=== PATIENT | male | born 1935 | race Caucasian/White ===

== ENCOUNTER → 2017-04-30 | Outpatient (CLI) | payer MEDICARE ==
[~2017-04-30] MED LIST: ASPIRIN EC81 MG PO; ATIVAN-DPS0.5 MG PO; ATIVAN0.5 MG PO; CERAVE237 ML TP; CHLORASEPTIC SPR6 OZ PO; CLARITIN DPS10 MG PO; COLACE-DPS100 MG PO; COUMADIN3 MG PO; COUMADIN6 MG PO; DESYREL-DPS50 MG PO; HYDROCHLOROTHIA25 MG PO; HYTONE-DPS 2.5%30 GM TP; IMODIUM A-D2 MG PO; KEFLEX-DPS500 MG PO; KLOR-CON M2020 ME1 PO; LASIX20 M1 GT; LIDEX 0.05% OIN60 GM TP; LIDOCAINE PATCH TD; LIDODERM PATC1 PATCH TP; LORTAB LIQUID D15 ML GT; MAALOX DPS30 ML PO; MESTINON DPS60 MG PO; METOPROLOL TART25 MG PO; MEVACOR40 MG PO; MIRALAX17 GM GT; NEOSPORIN OINT1 EACH TP; NEXIUM40 MG PO; NITROSTAT0.4 MG SL; NIZORAL DPS30 GM TP; POTASSIUM GLUC500 MG PO; PREPARATION H O60 GM TP; PREVACID30 MG GT; SERTRALINE HCL25 MG PO; SINEMET 25-1001 EACH GT; TYLENOL DP650 MG/20. GT; TYLENOL-DP325 MG/10. PO; TYLENOL-DPS650 MG PR; VESICARE5 MG PO; [UNRECOGNIZED DRUG - OTHER] GT
== END | disposition home or self-care (01) ==
LOC: RAD.S 14:53
DX: M79.89 Other specified soft tissue disorders (principal); L53.9 Erythematous condition, unspecified; M79.605 Pain in left leg

== ENCOUNTER 2017-07-01 06:46 | Inpatient (IN) | payer MEDICARE ==
[~2017-07-01 06:46] MED LIST changes: -CERAVE237 ML TP; -CLARITIN DPS10 MG PO; -COLACE-DPS100 MG PO; -COUMADIN6 MG PO; -DESYREL-DPS50 MG PO; -HYDROCHLOROTHIA25 MG PO; -IMODIUM A-D2 MG PO; -KEFLEX-DPS500 MG PO; -KLOR-CON M2020 ME1 PO; -LIDEX 0.05% OIN60 GM TP; -LIDOCAINE PATCH TD; -MESTINON DPS60 MG PO; -MEVACOR40 MG PO; -NEXIUM40 MG PO; -NITROSTAT0.4 MG SL; -NIZORAL DPS30 GM TP; -POTASSIUM GLUC500 MG PO; -SERTRALINE HCL25 MG PO; -TYLENOL-DP325 MG/10. PO; -VESICARE5 MG PO
[2017-07-05] MEDS ORDERED: CLARITIN DPS10 MG PO (14:25)
[2017-07-05] MEDS ORDERED: CERAVE237 ML TP (14:25)
[2017-07-05] MEDS ORDERED: COUMADIN6 MG PO (14:27)
[2017-07-05] MEDS ORDERED: HYDROCHLOROTHIA25 MG PO (14:28)
[2017-07-05] MEDS ORDERED: IMODIUM A-D2 MG PO (14:28)
[2017-07-05] MEDS ORDERED: LIDEX 0.05% OIN60 GM TP (14:29)
[2017-07-05] MEDS ORDERED: LIDOCAINE PATCH TD (14:31)
[2017-07-05] MEDS ORDERED: NEXIUM40 MG PO (14:33)
[2017-07-05] MEDS ORDERED: MESTINON DPS60 MG PO (14:33)
[2017-07-05] MEDS ORDERED: MEVACOR40 MG PO (14:33)
[2017-07-05] MEDS ORDERED: POTASSIUM GLUC500 MG PO (14:34)
[2017-07-05] MEDS ORDERED: NIZORAL DPS30 GM TP (14:34)
[2017-07-05] MEDS ORDERED: TYLENOL-DP325 MG/10. PO (14:36)
[2017-07-05] MEDS ORDERED: DESYREL-DPS50 MG PO (14:36)
[2017-07-05] MEDS ORDERED: KLOR-CON M2020 ME1 PO (14:37)
[2017-07-05] MEDS ORDERED: SERTRALINE HCL25 MG PO (14:37)
[2017-07-05] MEDS ORDERED: VESICARE5 MG PO (14:37)
[2017-07-05] MEDS ORDERED: NITROSTAT0.4 MG SL (14:38)
[2017-07-05] MEDS ORDERED: COLACE-DPS100 MG PO (14:38)
[2017-07-05] MEDS ORDERED: KEFLEX-DPS500 MG PO (14:38)
== END 2017-07-04 15:05 | disposition home or self-care (01) | DRG 603 ==
DX: L03.116 Cellulitis of left lower limb (principal); G70.00 Myasthenia gravis without (acute) exacerbation; I48.91 Unspecified atrial fibrillation; R00.1 Bradycardia, unspecified; E87.6 Hypokalemia; I10 Essential (primary) hypertension; E78.5 Hyperlipidemia, unspecified; N40.0 Benign prostatic hyperplasia without lower urinary tract symptoms; F41.1 Generalized anxiety disorder; I87.8 Other specified disorders of veins; F32.9 Major depressive disorder, single episode, unspecified; Z87.11 Personal history of peptic ulcer disease; K21.9 Gastro-esophageal reflux disease without esophagitis; Z86.73 Personal history of transient ischemic attack (TIA), and cerebral infarction without residual deficits; Z79.01 Long term (current) use of anticoagulants; Z90.5 Acquired absence of kidney; Z79.82 Long term (current) use of aspirin; Z82.49 Family history of ischemic heart disease and other diseases of the circulatory system